=== PATIENT | male | born 1935 | race African-American/Black ===

== ENCOUNTER → 2019-04-18 | Outpatient (CLI) | payer MEDICARE, BC ==
--- NOTE | 2019-04-18 14:29 | Diagnostic Imaging Report ---
Indication: Cough Technique: 2 views of the chest Comparison: 10/24/2011 Findings: Lungs and pleural spaces are clear. The heart size is normal. The aorta is ectatic.. There are degenerative changes of the thoracic spine. No significant interim change Impression: No acute process
== END | disposition home or self-care (01) ==
LOC: RAD 11:18
DX: R05 Cough (principal)
CPT/HCPCS: 71046